=== PATIENT | female | born 1990 | race Caucasian/White ===

== ENCOUNTER 2017-08-11 12:30 | Outpatient (CLI) | payer MEDICAID | END 2017-08-11 15:25 | disposition home or self-care (01) | LOC: OBT 12:30 → L-D 12:32 → OBT 15:25 | DX: O36.8120 Decreased fetal movements, second trimester, not applicable or unspecified (principal); Z3A.27 27 weeks gestation of pregnancy | CPT/HCPCS: 76818 ==

== ENCOUNTER 2017-11-09 19:22 | Outpatient (CLI) | payer MEDICAID ==
[2017-11-09 20:26] LABS: ADD UMIC YES; UR AMORPHOUS CRYSTAL FEW /HPF (NONE SEEN); UR ASCORBIC ACID 20 mg/dL (NEGATIVE); UR BACTERIA FEW /HPF (NONE SEEN); UR BILIRUBIN (Dip) NEGATIVE (NEGATIVE); UR BLOOD (Dip) NEGATIVE (NEGATIVE); UR CLARITY SLIGHTLY CLOUDY (CLEAR); UR COLOR YELLOW (YELLOW); UR GLUCOSE (Dip) NEGATIVE (NEGATIVE); UR KETONES (Dip) NEGATIVE (NEGATIVE); UR LEUKOCYTE ESTERASE (Dip) 3+ Leu/ul (NEGATIVE); UR NITRITE (Dip) NEGATIVE (NEGATIVE); UR RBC 2 /HPF (0-5); UR SPECIFIC GRAVITY (Dip) 1.009 (1.003-1.030); UR SQUAMOUS EPITHELIAL CELL MODERATE /HPF (FEW); UR TOTAL PROTEIN (Dip) NEGATIVE (NEGATIVE); UR UROBILINOGEN (Dip) NEGATIVE (NEGATIVE); UR WBC 7 /HPF (0-5)
== END 2017-11-09 22:27 | disposition home or self-care (01) ==
LOC: OBT 19:22 → L-D 19:24 → OBT 22:27
DX: O35.9XX0 Maternal care for (suspected) fetal abnormality and damage, unspecified, not applicable or unspecified (principal); Z3A.39 39 weeks gestation of pregnancy
CPT/HCPCS: 76815; 76818; 81001

== ENCOUNTER 2017-11-14 12:14 | Inpatient (IN) | payer MEDICAID ==
[2017-11-14] MEDS: LACTATED RINGER'S 1,000 ML IV* ×2 (13:22→18:46)
[2017-11-14 13:48] LABS: ADD MAN DIFF? NO
[2017-11-14 13:50] LABS: BASOPHIL # 0.1 10^3/ul (0.0-0.1); BASOPHILS % 0.5 % (0.0-2.0); EOSINOPHILS % 0.4 % (0.0-7.0); HEMATOCRIT 40.6 % (37.0-47.0); HEMOGLOBIN 13.5 g/dl (12.0-16.0); LYMPHOCYTES # 2.6 10^3/ul (0.8-2.9); LYMPHOCYTES % 25.5 % (15.0-51.0); MEAN CORPUSCULAR HEMOGLOBIN 28.1 pg (29.0-33.0); MEAN CORPUSCULAR HGB CONC 33.3 g/dl (32.0-37.0); MEAN CORPUSCULAR VOLUME 84.4 fl (82.0-101.0); MEAN PLATELET VOLUME 11.8 fl (7.4-10.4); MONOCYTE # 0.6 10^3/ul (0.3-0.9); NEUTROPHIL # 6.8 10^3/ul (1.6-7.5); NEUTROPHILS % 66.8 % (39.0-77.0); PLATELET COUNT 169 10^3/UL (140-415); RED BLOOD COUNT 4.81 10^6/ul (4.20-5.40); RED CELL DISTRIBUTION WIDTH 14.4 % (11.5-14.5)
[2017-11-14 13:50] LABS: WHITE BLOOD COUNT 10.2 10^3/ul (4.8-10.8)
[2017-11-14 13:53] LABS: INR 0.88; PT RATIO 0.9
[2017-11-14 13:54] LABS: PARTIAL THROMBOPLASTIN TIME 26.7 Sec (25.0-35.0)
[2017-11-14] MEDS ORDERED: OXYTOCIN 30 UNITS/LR 500 ML IV ×2 (14:00)
[2017-11-14] MEDS ORDERED: CARBOPROST 250 MCG INJ IM (14:00)
[2017-11-14] MEDS ORDERED: MISOPROSTOL 200 MCG TAB PR (14:00)
[2017-11-14] MEDS ORDERED: LIDOCAINE 1% (MPF) 30 ML INJ INJ (14:00)
[2017-11-14] MEDS ORDERED: MISOPROSTOL 100 MCG TAB VAG (14:00)
[2017-11-14] MEDS ORDERED: METHYLERGONOVINE 0.2 MG INJ IM (14:00)
[2017-11-14] MEDS: DINOPROSTONE 10 MG VAG SUPP VAG (14:54)
[2017-11-14 15:03] LABS: RAPID PLASMA REAGIN NONREACTIVE (NR)
[2017-11-15] MEDS: LACTATED RINGER'S 1,000 ML IV* ×4 (00:37→18:22)
[2017-11-15] MEDS: DINOPROSTONE 10 MG VAG SUPP VAG (06:58)
[2017-11-15] MEDS ORDERED: FENTAnyl 2MCG/ML-ROPIV 0.2% 100 ML (11:33)
[2017-11-15] MEDS: LACTATED RINGER'S 1,000 ML IV (11:54)
[2017-11-15] MEDS: FENTAnyl 2MCG/ML-ROPIV 0.2% 100 ML BAG EPI ×2 (11:54→18:40)
[2017-11-15] MEDS ORDERED: NALOXONE (0.4 MG/ML) INJ IV (12:00)
[2017-11-15] MEDS ORDERED: ONDANSETRON 4 MG INJ IV (12:00)
[2017-11-15] MEDS ORDERED: DIPHENHYDRAMINE 50 MG INJ IV (12:00)
[2017-11-15] MEDS: OXYTOCIN 30 UNITS/LR 500 ML IV (20:13)
[2017-11-16] MEDS: SENNA/DOCUSATE NA (8.6MG/50MG) TAB PO (00:13)
[2017-11-16] MEDS: FENTAnyl 2MCG/ML-ROPIV 0.2% 100 ML BAG EPI ×2 (01:52→08:58)
[2017-11-16] MEDS: LACTATED RINGER'S 1,000 ML IV* ×2 (03:00→10:45)
[2017-11-16] MEDS: OXYTOCIN 30 UNITS/LR 500 ML IV ×2 (12:37→18:26)
[2017-11-16] MEDS: MINERAL OIL LIGHT 10 ML VIAL TOP (12:43)
[2017-11-16] MEDS: MISOPROSTOL 100 MCG TAB VAG (14:00)
[2017-11-16] MEDS ORDERED: ACETAMINOPHEN 325 MG TAB PO (15:00)
[2017-11-16] MEDS ORDERED: DIBUCAINE 1% 30 GM OINT PR (15:00)
[2017-11-16] MEDS ORDERED: OXYCODONE/ASPIRIN (4.88/325) TAB PO (15:00)
[2017-11-16] MEDS ORDERED: ONDANSETRON 4 MG INJ IV (15:00)
[2017-11-16] MEDS: LANOLIN 7 GM TUBE TOP (15:46)
[2017-11-16] MEDS: WITCH HAZEL/GLYCERIN PAD PR (15:46)
[2017-11-16] MEDS: BENZOCAINE 20% 56 ML SPRAY TOP (15:46)
[2017-11-16] MEDS: OXYCODONE/ASPIRIN (4.88/325) TAB PO (15:46)
[2017-11-16] MEDS: IBUPROFEN 600 MG TAB PO (18:22)
[2017-11-17] MEDS: IBUPROFEN 600 MG TAB PO ×4 (00:13→18:10)
[2017-11-17 06:40] LABS: ADD MAN DIFF? NO
[2017-11-17 06:50] LABS: WHITE BLOOD COUNT 16.4 10^3/ul (4.8-10.8)
[2017-11-17 06:50] LABS: BASOPHILS % 0.2 % (0.0-2.0); EOSINOPHILS # 0.1 10^3/ul (0.0-0.5); EOSINOPHILS % 0.8 % (0.0-7.0); HEMATOCRIT 34.1 % (37.0-47.0); HEMOGLOBIN 11.4 g/dl (12.0-16.0); LYMPHOCYTES # 2.4 10^3/ul (0.8-2.9); LYMPHOCYTES % 14.9 % (15.0-51.0); MEAN CORPUSCULAR HEMOGLOBIN 28.9 pg (29.0-33.0); MEAN CORPUSCULAR HGB CONC 33.4 g/dl (32.0-37.0); MEAN CORPUSCULAR VOLUME 86.3 fl (82.0-101.0); MEAN PLATELET VOLUME 11.7 fl (7.4-10.4); MONOCYTE # 0.9 10^3/ul (0.3-0.9); MONOCYTES % 5.6 % (0.0-11.0); NEUTROPHIL # 12.8 10^3/ul (1.6-7.5); PLATELET COUNT 146 10^3/UL (140-415); RED BLOOD COUNT 3.95 10^6/ul (4.20-5.40); RED CELL DISTRIBUTION WIDTH 14.5 % (11.5-14.5)
[2017-11-17] MEDS: SENNA/DOCUSATE NA (8.6MG/50MG) TAB PO ×2 (08:35→21:00)
[2017-11-17] MEDS: OXYCODONE/ASPIRIN (4.88/325) TAB PO (10:16)
[2017-11-17] MEDS: HYDROCODONE/APAP (5/325) TAB PO (15:23)
[2017-11-18] MEDS: IBUPROFEN 600 MG TAB PO ×3 (00:40→11:26)
[2017-11-18] MEDS: HYDROCODONE/APAP (5/325) TAB PO (03:18)
[2017-11-18] MEDS: SENNA/DOCUSATE NA (8.6MG/50MG) TAB PO (08:42)
[2017-11-18] MEDS: MEASLES,MUMPS,RUBELLA VACCINE INJ SC* (09:00)
[2017-11-18] MEDS: DIPHTH/TET/ACEL PERTUSS (ADULT) 0.5 ML VIAL IM* (16:56)
== END 2017-11-18 17:50 | disposition home or self-care (01) | DRG 775 ==
LOC: OBT 12:14 → L-D 11-15 07:48 → PP1 11-16 14:03 → L-D 12:15 → OBT 12:41 → L-D 12:25
PROVIDERS: Obstetrics & Gynecology
PROC: 10E0XZZ Delivery of Products of Conception, External Approach (ICD-10-PCS; principal; 2017-11-15)
PROC: 0HQ9XZZ Repair Perineum Skin, External Approach (ICD-10-PCS; 2017-11-15)
PROC: 3E033VJ Introduction of Other Hormone into Peripheral Vein, Percutaneous Approach (ICD-10-PCS; 2017-11-15)
DX: O48.0 Post-term pregnancy (principal); Z3A.40 40 weeks gestation of pregnancy; O70.0 First degree perineal laceration during delivery; Z37.0 Single live birth
CPT/HCPCS: 85025; 85610; 85730; 86592; 86850; 86900; 86901; 90715

== ENCOUNTER 2018-04-22 21:31 | Emergency (ER) | payer MEDICAID ==
[2018-04-22] MEDS: ACETAMINOPHEN 500 MG TAB PO (23:37)
[2018-04-22 23:43] LABS: ADD MAN DIFF? NO
[2018-04-22 23:44] LABS: BASOPHIL # 0.1 10^3/ul (0.0-0.1); BASOPHILS % 0.6 % (0.0-2.0); EOSINOPHILS # 0.1 10^3/ul (0.0-0.5); EOSINOPHILS % 1.2 % (0.0-7.0); HEMOGLOBIN 13.4 g/dl (12.0-16.0); MEAN CORPUSCULAR HEMOGLOBIN 28.3 pg (29.0-33.0); MEAN CORPUSCULAR HGB CONC 31.9 g/dl (32.0-37.0); MEAN CORPUSCULAR VOLUME 88.6 fl (82.0-101.0); MEAN PLATELET VOLUME 9.7 fl (7.4-10.4); MONOCYTE # 0.6 10^3/ul (0.3-0.9); MONOCYTES % 4.8 % (0.0-11.0); NEUTROPHIL # 7.8 10^3/ul (1.6-7.5); NEUTROPHILS % 67.1 % (39.0-77.0); PLATELET COUNT 263 10^3/UL (140-415); RED BLOOD COUNT 4.74 10^6/ul (4.20-5.40); RED CELL DISTRIBUTION WIDTH 12.8 % (11.5-14.5)
[2018-04-22 23:44] LABS: WHITE BLOOD COUNT 11.6 10^3/ul (4.8-10.8)
[2018-04-22 23:56] LABS: ADD UMIC YES; UR ASCORBIC ACID NEGATIVE (NEGATIVE); UR BACTERIA FEW /HPF (NONE SEEN); UR BILIRUBIN (Dip) NEGATIVE (NEGATIVE); UR BLOOD (Dip) 3+ mg/dL (NEGATIVE); UR CLARITY SLIGHTLY CLOUDY (CLEAR); UR COLOR YELLOW (YELLOW); UR GLUCOSE (Dip) NEGATIVE (NEGATIVE); UR KETONES (Dip) NEGATIVE (NEGATIVE); UR LEUKOCYTE ESTERASE (Dip) NEGATIVE Leu/ul (NEGATIVE); UR NITRITE (Dip) NEGATIVE (NEGATIVE); UR RBC 59 /HPF (0-5); UR SPECIFIC GRAVITY (Dip) 1.019 (1.003-1.030); UR SQUAMOUS EPITHELIAL CELL FEW /HPF (FEW); UR TOTAL PROTEIN (Dip) NEGATIVE (NEGATIVE); UR UROBILINOGEN (Dip) NEGATIVE (NEGATIVE); UR WBC 6 /HPF (0-5)
[2018-04-23 00:02] LABS: ALANINE AMINOTRANSFERASE 29 IU/L (13-69); ALBUMIN 4.7 g/dl (3.3-4.9); ALBUMIN/GLOBULIN RATIO 1.38; ALKALINE PHOSPHATASE 100 IU/L (42-121); ANION GAP 15 (5-13); ASPARTATE AMINO TRANSFERASE 29 IU/L (15-46); BILIRUBIN,INDIRECT 0.1 mg/dl (0-1.1); BILIRUBIN,TOTAL 0.1 mg/dl (0.2-1.3); BLOOD UREA NITROGEN 15 mg/dl (7-20); CALCIUM 9.9 mg/dl (8.4-10.2); CARBON DIOXIDE 25 mmol/L (21-31); CHLORIDE 103 mmol/L (97-110); CREATININE 0.53 mg/dl (0.44-1.00); Estimated GFR > 60 mL/min (>60); GLUCOSE 98 mg/dl (70-220); LIPASE 225 U/L (23-300); POTASSIUM 4.2 mmol/L (3.5-5.1); SODIUM 143 mmol/L (135-144); TOTAL PROTEIN 8.1 g/dl (6.1-8.1)
== END 2018-04-23 01:28 | disposition home or self-care (01) ==
LOC: FTE 04-23 01:28
DX: R10.84 Generalized abdominal pain (principal); R40.2412 Glasgow coma scale score 13-15, at arrival to emergency department
CPT/HCPCS: 36415; 80053; 81001; 81025; 83690; 85025; 99283